=== PATIENT | male | born 1950 | race Caucasian/White ===

== ENCOUNTER 2019-03-03 09:03 | Inpatient (IN) | payer MEDICARE, BC ==
[2019-02-27 14:49] LABS: BASOPHILS % (AUTO) 0 % (0-1); EOSINOPHILS % (AUTO) 0.1 % (0-6); LYMPHOCYTES # (AUTO) 1.5 X10'3 (1.1-4.8); LYMPHOCYTES % (AUTO) 7.8 % (21-51); MEAN CORPUSCULAR HEMOGLOBIN 28.7 PG (27.0-31.0); MEAN CORPUSCULAR HGB CONC 32.9 g/dL (33.0-36.5); MEAN CORPUSCULAR VOLUME 87.2 FL (78-98); MEAN PLATELET VOLUME 9.2 FL (7.4-10.4); MONOCYTES # (AUTO) 1.2 X10'3 (0-0.9); MONOCYTES % (AUTO) 6.5 % (2-12); NEUTROPHILS # (AUTO) 16.3 X10'3 (1.8-7.7); NEUTROPHILS % (AUTO) 85.6 % (42-75); PRE OP HEMATOCRIT 43.1 % (42.0-52.0); PRE OP HEMOGLOBIN 14.2 g/dL (14.0-17.9); PRE OP PLATELET COUNT 278 X10'3 (140-440); RED BLOOD COUNT 4.95 X10'6 (4.70-6.10); RED CELL DISTRIBUTION WIDTH 16.4 % (11.5-14.5)
[2019-02-27 15:05] LABS: ALBUMIN/GLOBULIN RATIO 0.4 (1.1-1.5); ALKALINE PHOSPHATASE 267 IU/L (46-116); BLOOD UREA NITROGEN 43 MG/DL (7-18); BUN/CREATININE RATIO 32.1 (5.4-32.0); CALCIUM 8.9 MG/DL (8.5-10.1); CHLORIDE 102 MMOL/L (99-107); CREATININE 1.34 MG/DL (0.60-1.10); PRE OP ANION GAP 12 (8-16); PRE OP BILIRUB, TOTAL 2.6 MG/DL (0.0-1.0); PRE OP GLUCOSE 109 MG/DL (70-104); PRE OP POTASSIUM 4.5 MMOL/L (3.4-5.1); PRE OP SODIUM 140 MMOL/L (135-145); TOTAL PROTEIN 6.9 G/DL (6.4-8.2); eGFR 53 ML/MIN
[2019-02-27 15:11] LABS: ANISOCYTOSIS 1+; PLATELET ESTIMATE NORMAL; PRE OP ALT 90 U/L (30-65); PRE OP AST 195 U/L (10-37); TARGET CELLS FEW
[2019-02-27 15:12] LABS: POIKILOCYTOSIS FEW
[2019-02-27 15:25] LABS: CLARITY,URINE CLEAR (Clear)
[2019-02-27 15:28] LABS: COLOR,URINE ORANGE (Yellow); UA COLLECTION TYPE NON-SPECIFIED
[2019-02-27 15:29] LABS: BACTERIA,URINE 4+ /HPF (Neg); MUCUS STRANDS FEW /LPF (Neg); RBC,URINE 0-2 /HPF (0-2); SQUAMOUS EPITHELIAL CELL,UR FEW /LPF (FEW)
[~2019-03-03] VITALS: Ht 170.2 cm; Wt 69.9 kg
[2019-03-03] VITALS (24 sets, daily range): BP systolic 102–138; BP diastolic 68–93
[~2019-03-03 09:03] MED LIST: HYDR-4353 PO; LIDO15SO2 PO; MORP100S12 PO; NYST1000 PO; ONDA8TAB6 PO; famotidine 20mg tablet PO ONE; meperidine/PF 25mg/ml syringe IV PRN; morphine 4 MG/ML inj SYRINge IV PRN; ondansetron/PF 4mg/2ml inj IV PRN; proCHLORperazine 10 MG/2 ml inj IV PRN; ringers solution, lacted 1,000 ML IV SCH
[2019-03-03] MEDS ORDERED: famotidine/PF 10 mg/ml inj IV ONE (09:45)
[2019-03-03] MEDS ORDERED: morphine 2 MG/ML inj. syringe IV PRN (10:15)
[2019-03-03] MEDS ORDERED: cefazolin/dext.iso 2gm/100 ML IV ONE (10:15)
[2019-03-03] MEDS: morphine 4 MG/ML inj SYRINge IV PRN ×2 (10:39→11:38)
--- NOTE | 2019-03-03 10:50 | NUR ---
(0915) PRESENT ON ADMIT. PT C/O 04/14 RT ABD PAIN. STATES TOOK ORAL MORPHINE DOSE 5 MINUTES AGO SCHEDULED AT HOME. ASSISTED TO POSITION OF COMFORT ON A GURNEY WITH PILLOWS. (0945) PAIN LEVEL PERSISTS, DR MALCOLM NOTIFIED AND IV MORPHINE ORDERED. (1050) AFTER TWO DOSES OF IV MORPHINE PT SLEEPING AND AWAKENS ON COMMAND, WHEN AWAKENED STATES PAIN IS STILL PRESENT YET SIGNIFICANTLY REDUCED. STATES TO HOLD OFF ON ADDITIONAL DOSES AT THIS TIME, HE IS SENSITIVE TO IV NARCOTICS. SAO2 93% RA, RESP RATE 15 AND NONLABORED. Addendum: 03/03/19 at 1148 by India Rivera RN Amended: Links added.
[2019-03-03] MEDS ORDERED: LIDOcaine 1% 30ml preserv. free vial ONE ×2 (11:51→13:14)
[2019-03-03] MEDS ORDERED: BUPIVAcaine/PF 2.5 mg/ml (0.25%) 30ml vial ONE ×2 (11:51→13:14)
[2019-03-03] MEDS ORDERED: iohexol 300 MG/1 ML 50ml polymer ONE (11:51)
[2019-03-03] MEDS ORDERED: desflurane 240ml liquid inh. IH ONE (12:05)
[2019-03-03] MEDS ORDERED: rocuronium 10mg/ml inj IV ONE ×2 (12:05→14:46)
[2019-03-03] MEDS ORDERED: neostigmine methylsulfate 1 MG/ML 10ml vial ONE (12:05)
[2019-03-03] MEDS ORDERED: midazolam 2 mg/2 ml injection ONE (12:13)
[2019-03-03] MEDS ORDERED: fentaNYL /PF 50mcg/ml 5ml ampule ONE (12:13)
[2019-03-03] MEDS ORDERED: LIDOcaine 2% (20mg/ml) 5ml vial ONE (12:17)
[2019-03-03] MEDS ORDERED: propofol inj 20 ML IV ONE (12:17)
[2019-03-03] MEDS ORDERED: heparin sodium, porcine/PF 100unit/ml 5ML syringe ONE ×3 (12:41→12:57)
[2019-03-03] MEDS ORDERED: morphine 10mg/ml inj. ONE (14:45)
[2019-03-03] MEDS ORDERED: dexamethasone sod phosphate 4mg/ml inj. ONE (14:46)
[2019-03-03] MEDS ORDERED: ondansetron/PF 4mg/2ml inj ONE (14:46)
--- NOTE | 2019-03-03 15:17 | NUR ---
Received from OR via BED, accompanied by Anesthesiologist DR MALCOLM and report given by Anesthesiologist. PT VERY DROWSY, DENIES PAIN, NO S/S OF DISCOMFORT/DISTRESS, RIGHT UPPER CHEST W/2 SMALL INCISIONS CDI, SUPERIOR INCISION W/STERI-STRIPS, INFERIOR INCISION W/DERMABOND, G-TUBE CLAMPED W/MEDIPORE TAPE COVERING INSERTION SITE CDI. Addendum: 03/03/19 at 1601 by Tamar Márquez RN Amended: Links added.
[2019-03-03] MEDS ORDERED: ondansetron/PF 4mg/2ml inj IV PRN (15:25)
[2019-03-03] MEDS ORDERED: HYDROmorphone 1 mg/ml syringe IV PRN (15:25)
[2019-03-03] MEDS ORDERED: glycopyrrolate 0.2mg/ml inj ONE (15:28)
[2019-03-03] MEDS ORDERED: nystatin 500,000 unit/5ML UD oral suspension PO PRN (15:45)
[2019-03-03] MEDS ORDERED: ceFOXitin 1 GM/D5W 50mL IVPB 1,000 GM in normal saline 100ml IV soln 100 ML IV SCH (16:00)
[2019-03-03] MEDS ORDERED: ceFOXitin 1 GM/D5W 50mL IVPB 50 ML IV SCH (16:00)
--- NOTE | 2019-03-03 17:17 | NUR ---
PT REMAINS COMFORTABLE, DROWSY, BUT APPROPRIATE. Report called to receiving nurse. Transferred IN STABLE CONDITION via BED, 1 BAG OF PERSONAL Belongings SENT W/PT TO ROOM 344A, RECEIVING RN AT BEDSIDE TO RECEIVE PT, BLL, CALL LIGHT GIVEN, SIDE RAILS UP X2, AT BEDSIDE. Special Issues communicated to receiving nurse. YES. Addendum: 03/03/19 at 1728 by Tamar Márquez RN Amended: Links added.
[2019-03-03] MEDS ORDERED: HYDROcodone/acetaminophen 10/325mg tab PO PRN (17:25)
[2019-03-03] MEDS ORDERED: morphine 10mg/0.5ml (conc. morphine) oral syringe PO PRN (17:25)
[2019-03-03] MEDS ORDERED: LIDOcaine Viscous 15ml cup MM PRN (17:25)
--- NOTE | 2019-03-03 17:41 | NUR ---
pt arrived to 344A from PACU. Pt c/o pain 11/12 to abd. A&Ox3 but sleepy. Post surgical abd dressings C.D.I, no oozing noted. New peg tube site C.D.I. and family at bedside. Post-op VS stable at this time.
--- NOTE | 2019-03-03 18:42 | NUR ---
Patient in room [facility]. I have received report from DANNIELLE Doss and had the opportunity to ask questions and assume patient care.
--- NOTE | 2019-03-03 18:42 | NUR ---
Problems reprioritized. Patient report given, questions answered & plan of care reviewed with DANNIELLE Portillo.
[2019-03-03] MEDS: potassium CL 20mEq in D5-1/2NS 1,000 ML IV SCH ×2 (19:06→23:22)
[2019-03-03] MEDS: ceFOXitin 1 GM/D5W 50mL IVPB 50 ML IV SCH ×2 (19:11→23:57)
[2019-03-03] MEDS ORDERED: pneumococcal 23-VAL P-sac vacc 25 mcg/0.5ml vial IMVAC ONE (21:00)
--- NOTE | 2019-03-03 22:28 | NUR ---
Per surgeon nursing staff is not to do anything with g-tube. CDI clean dry and intact. #3 lap sites covered with big brown band aidchaz, GIOVANNY Addendum: 03/03/19 at 2235 by Bandar Campos RN Amended: Links added.
[2019-03-04 00:36] VITALS: BP 106/78
[2019-03-04 00:49] VITALS: BP 106/76
[2019-03-04 04:30] VITALS: BP 107/78
[2019-03-04] MEDS: potassium CL 20mEq in D5-1/2NS 1,000 ML IV SCH (04:37)
--- NOTE | 2019-03-04 06:50 | NUR ---
Problems reprioritized. Patient report given, questions answered & plan of care reviewed with DANNIELLE Beck.
[2019-03-04 07:00] VITALS: BP 109/75
[2019-03-04] MEDS: ondansetron 4mg rapidly disintigrating tab PO SCH ×3 (08:31→17:12)
--- NOTE | 2019-03-04 09:45 | NUR ---
Although pt. answer person place time and president question correctly he is confused at times stating that somebody called him through his pulse oximeter. MD Bermudez made aware. Bilateral lower extremity pitting edema found. HR 111, retaken within an hour- 97HR. made aware of both issues. New order to SL pt. Fluids stopped. Gave new orders to start g-tube feeding Jevity 1.2 at 30ml continuous. No orders to advance at this point. Spoke to Demi assessment consultant- she recommends consult to evaluate future nutrient needs regarding formula administration.
[2019-03-04] MEDS ORDERED: pneumococcal 23-VAL P-sac vacc 25 mcg/0.5ml vial IMVAC ONE (10:00)
--- NOTE | 2019-03-04 10:29 | NUR ---
TF consult: Pt s/p G-tube placement. Per RN and consult surgeon requesting continuous TF of Jevity 1.2 at rate of 30 mL/hr. Recommendations below for if to advance rate to meet nutrient needs. Malnutrition consult: Unable to obtain information as pt is documented as confused. Pt with no wt hx in EMR and currently on ice chips only for PO diet order. H&P pending. Pt documented with mild BLE 2+ edema and with general severe weakness. Pt currently meets criteria for non-severe malnutrition, MD notified. Will continue to follow and monitor tolerance to nutrition support. Recommendations: 1) Continuous Jevity 1.2 at 30 mL/hr per MD to provide: 720 mL total volume/day, 864 kcal, 40 g protein, and 581 mL water 2) Additional 100 mL water flush Q4H 3) Once okayed by MD to advance goal rate to meet nutrient needs: Jevity 1.2 with goal rate of 65 mL/hr to provide: 1560 mL total volume/day, 1872 kcal, 87 g protein, 1259 mL water 4) Prealbumin q /; daily weights HOME TF RECS VIA PE) Bolus TF QID using Jevity 1.5 or equivalent to begin at 150 mL/bolus and advance by 50 mL each bolus to goal rate of 325 mL/bolus with 60 mL water flush before and after each bolus 2) Additional 480 mL water daily 3) Outpatient RD to titrate to goal rate and make adjustments as needed according to patient's estimated nutrient needs Addendum: 03/04/19 at [address] Amended: Links added.
[2019-03-04 11:00] VITALS: BP 114/75
--- NOTE | 2019-03-04 11:08 | NUR ---
Received TC from DANNIELLE who states MD requests no water flushes at this time. Addendum: 03/04/19 at [address] Amended: Links added.
--- NOTE | 2019-03-04 13:54 | NUR ---
Pt. had 150 dark residual removed before initial g-tube feeding started. Pt. vomited small amount of dark emesis. Cleaned up, zofran administered per order, g-tube feeding rate reduced, called. MD Bermudez stated he does not want rate reduced. Also discussed PT. feels pt. should walk around but does not want a PT evaluation.
--- NOTE | 2019-03-04 15:00 | NUR ---
Pt. has another episode of emesis, dark brown, small amount > 10 ml.
[2019-03-04] MEDS: HYDROcodone/acetaminophen 10/325mg tab PO PRN (17:20)
[2019-03-04 18:00] VITALS: BP 105/74
[2019-03-04] MEDS: morphine 10mg/0.5ml (conc. morphine) oral syringe PO SCH (20:28)
--- NOTE | 2019-03-04 20:45 | NUR ---
Dr Bermudez was called in regards to patients residual being a thick dark with white chunks in it.(Residual amount was 180) I was told to discard residual, hold feedings for a few hours, and to repeat if the same things happens.
[2019-03-05] VITALS: BP 116/79
[2019-03-05] MEDS: morphine 10mg/0.5ml (conc. morphine) oral syringe PO SCH ×5 (00:12→16:14)
[2019-03-05] MEDS: HYDROcodone/acetaminophen 10/325mg tab PO PRN ×2 (00:42→04:54)
--- NOTE | 2019-03-05 01:08 | NUR ---
Held due to tammie joy residual per order. Addendum: 03/05/19 at 0109 by Bandar Campos RN Amended: Links added.
--- NOTE | 2019-03-05 04:37 | NUR ---
Held feedings again. Residual looks less brown and has a tinge of green to it but has a lot of brown and sediment to t. This time it is not as thick ans the brown/sediment has to the bottom of the cup. Charge nurse Gillian SPICER looked at it and we feel that we should not return to stomach, and continue to hold feedings. Addendum: 03/05/19 at 0441 by Bandar Campos RN Amended: Links added.
--- NOTE | 2019-03-05 06:34 | NUR ---
Patient in room [facility]. I have received report from DANNIELLE oPrtillo and had the opportunity to ask questions and assume patient care.
--- NOTE | 2019-03-05 06:34 | NUR ---
Problems reprioritized. Patient report given, questions answered & plan of care reviewed with DANNIELLE Pereira.
[2019-03-05 07:00] VITALS: BP 106/72
[2019-03-05] MEDS: ondansetron 4mg rapidly disintigrating tab PO SCH ×3 (09:19→16:15)
[2019-03-05 11:00] VITALS: BP 96/67
--- NOTE | 2019-03-05 14:04 | NUR ---
O2 Sat at rest on room air: 91% If O2 Sat did not drop below 89% on room air,ambulate patient on room air. O2 Sat while ambulating on room air: 85% Recovery O2 Sat while ambulating on 2 LPM: 92% No further documentation is necessary.
--- NOTE | 2019-03-05 17:15 | NUR ---
Patient discharged home via and taken from unit via wheelchair with x1 staff. Patient discharge took longer than 2 hours due to having to get insurance approval for a wheelchair, oxygen and to put in a referral to hospice. Lucrecia with case management was able to get the patient all of those resources. Oxygen was delivered and they were educated on how to use is. Someone from [facility] came to give the patient and instructions on how to give tube feed. Patient and expressed an understanding of the teaching. Patient was alert and oriented at time of discharge and in no apparent distress. Patient took all belongings with him. PIV was removed with cannula intact.
== END 2019-03-05 17:23 | disposition hospice, home (50) | DRG 327 ==
LOC: PAS 09:03 → SUR 3N 17:22
PROVIDERS: ADMIT Surgery; ATTEND Surgery
PROC: 0DN64ZZ Release Stomach, Percutaneous Endoscopic Approach (ICD-10-PCS; 2019-03-03)
PROC: 0DNU4ZZ Release Omentum, Percutaneous Endoscopic Approach (ICD-10-PCS; 2019-03-03)
PROC: 0FN24ZZ Release Left Lobe Liver, Percutaneous Endoscopic Approach (ICD-10-PCS; 2019-03-03)
PROC: 3E0234Z Introduction of Serum, Toxoid and Vaccine into Muscle, Percutaneous Approach (ICD-10-PCS; 2019-03-03)
PROC: 02H633Z Insertion of Infusion Device into Right Atrium, Percutaneous Approach (ICD-10-PCS; 2019-03-03)
PROC: B2141ZZ Fluoroscopy of Right Heart using Low Osmolar Contrast (ICD-10-PCS; 2019-03-03)
PROC: B244ZZZ Ultrasonography of Right Heart (ICD-10-PCS; 2019-03-03)
PROC: 0DH64UZ Insertion of Feeding Device into Stomach, Percutaneous Endoscopic Approach (ICD-10-PCS; 2019-03-03)
PROC: 0JH63XZ Insertion of Tunneled Vascular Access Device into Chest Subcutaneous Tissue and Fascia, Percutaneous Approach (ICD-10-PCS; 2019-03-03)
PROC: 8E0W4CZ Robotic Assisted Procedure of Trunk Region, Percutaneous Endoscopic Approach (ICD-10-PCS; principal; 2019-03-03 12:05)
DX: C15.9 Malignant neoplasm of esophagus, unspecified (principal); C78.7 Secondary malignant neoplasm of liver and intrahepatic bile duct; K21.9 Gastro-esophageal reflux disease without esophagitis; R62.7 Adult failure to thrive; F17.210 Nicotine dependence, cigarettes, uncomplicated; Z88.6 Allergy status to analgesic agent; Z23 Encounter for immunization; Z68.24 Body mass index [BMI] 24.0-24.9, adult; Z80.9 Family history of malignant neoplasm, unspecified; Z79.899 Other long term (current) drug therapy
CPT/HCPCS: 36415; 71048; 76000; 80053; 81001; 82948; 84134; 85025; 87081; 87088; 90732; 93005; A4215; A4618; A6402; A7000; B4087; C1788; G0378; J0694; J1100; J1170; J1642; J2001; J2250; J2270; J2405; J2704; J2710; J3010; J3480; J3490; J7040; J7120; Q9967